=== PATIENT | female | born 1945 | race Caucasian/White ===

== ENCOUNTER → 2019-04-25 13:20 | Outpatient (BNVA) | payer MEDICARE, OTHER, SELFPAY | PROVIDERS: Family Provider Family Medicine; Visit Provider Family Medicine | DX: I10 Essential (primary) hypertension (principal); J44.9 Chronic obstructive pulmonary disease, unspecified; K59.03 Drug induced constipation; R30.0 Dysuria | CPT/HCPCS: 80048; 81003 ==